=== PATIENT | male | born 1985 | race Caucasian/White ===

== ENCOUNTER 2016-04-22 07:55 | Outpatient (CLI) | payer OTHER ==
--- NOTE | 2016-04-22 16:19 | Magnetic Resonance Report ---
MRI OF THE NECK WITHOUT CONTRAST. PROCEDURE: Multiplanar and multisequence study was performed without contrast. FINDINGS: In the left subcutaneous tissue of the supraclavicular region, there is a circumscribed round nodular lesion measuring 7.4 mm in diameter. This demonstrates mixed signal on T1 and T2 sequences with a central area of hyperintense T1 signal surrounded by hypointense periphery. No additional soft tissue masses are seen. The parotid and submandibular glands are unremarkable. There are no abnormal fluid collections. The thyroid gland is unremarkable. There are no glottic or subglottic abnormalities. IMPRESSION: 7.4 mm subcutaneous lesion with mixed signal characteristics located at the site of a palpable abnormality in the left supra-clavicular region. This most likely represents a small lymph node. No suspicious imaging features are seen.
--- NOTE | 2016-04-26 11:44 | Magnetic Resonance Report ---
MR UPPER EXTREMITY JOINT LEFT WITHOUT CONTRAST: HISTORY: Pain and swelling. TECHNIQUE: Multisequence, multiplanar MRI without contrast. COMPARISON: None. FINDINGS: There is mild thickening and increased signal in the distal supraspinatus tendon suggesting a mild tendinosis is present. There is no evidence for full thickness defect or retraction. The infraspinatus, subscapularis and teres minor tendons are intact and unremarkable. The biceps tendon and its anchor upon the superior labrum is unremarkable. There is no gross labral defect. No joint effusion or bursal fluid is appreciated. 4 mm subchondral cyst in the superior glenoid is noted. IMPRESSION: Minimal tendinosis of the distal subcutaneous tendon.
== END 2016-04-22 07:56 | disposition home or self-care (01) ==
LOC: MRI 07:55
PROVIDERS: ATTEND Internal Medicine
DX: M54.2 Cervicalgia (principal)
CPT/HCPCS: 70540